=== PATIENT | female | born 1960 | race African-American/Black ===

== ENCOUNTER 2019-09-04 07:45 | Outpatient (CLI) | payer BC ==
--- NOTE | 2019-09-04 08:17 | ULT ---
RIGHT UPPER QUADRANT ULTRASOUND: INDICATION: Constipation, right upper abdominal pain. COMPARISON: No prior comparison imaging. FINDINGS: There are 2 hyperechoic masses localizing to the right hepatic lobe, one of which is large in size, b etween 5.5 and 6 cm in length as demonstrated sonographically, with an adjacent subcentimeter 6-7 mm hyperechoic focus of the hepatic parenchyma. No acute gallbladder pathology. The common duct is normal. No ascites. IMPRESSION: Hyperechoic lesions of the liver, indeterminate on the basis of this exam. Pre- and postcontrast CT abdomen utilizing hemangioma protocol is warranted for further evaluation. CODE T
== END 2019-09-04 07:46 | disposition home or self-care (01) ==
LOC: SCSULT 07:45
PROVIDERS: ATTEND Internal Medicine
DX: R10.10 Upper abdominal pain, unspecified (principal); K76.9 Liver disease, unspecified
CPT/HCPCS: 76705

== ENCOUNTER 2019-09-22 08:25 | Outpatient (CLI) | payer BC ==
[2019-09-22] MEDS ORDERED: Iopamidol 370 76% 100 ML VIAL ONE (09:00)
--- NOTE | 2019-09-22 10:13 | CT ---
CLINICAL HISTORY: Epigastric abdominal pain; echogenic lesion seen in the right lobe of the liver on ultrasound. TECHNIQUE: Multiple contiguous axial images were obtained and a CT of the abdomen without and with IV contrast. Postcontrast images were obtained in the arterial and portal venous phases. Coronal and sagittal reformats were performed. Oral contrast was administered. COMPARISON: Gallbladder ultrasound 09/04/2019 FINDINGS: Liver: Size: Normal. Contour: Smooth. Mass: 3.7 cm mass demonstrates puddling and filling consistent with a hemangioma. There is also a 7 m m nonenhancing cyst Gallbladder and biliary system: Normal. No CT evident gallstones. No biliary ductal dilatation. Spleen: Normal. Pancreas: Normal. Kidneys: Normal. Adrenal glands: Normal. GI tract: Normal. Abdominal aorta and its major branches: Normal. No aneurysm. Peritoneum/retroperitoneum: Normal. No ascites. No adenopathy. Body wall and musculoskeletal: Normal. Visualized lower thorax: Normal. No pulmonary parenchymal mass or pleural effusion. IMPRESSION: 1. Right hepatic hemangioma 2. Right hepatic cyst
== END 2019-09-22 08:26 | disposition home or self-care (01) ==
LOC: SCSCT 08:25
PROVIDERS: ATTEND Internal Medicine
DX: R93.5 Abnormal findings on diagnostic imaging of other abdominal regions, including retroperitoneum (principal); D18.03 Hemangioma of intra-abdominal structures; K76.89 Other specified diseases of liver
CPT/HCPCS: 74170; Q9967